=== PATIENT | female | born 1990 | race Caucasian/White ===

== ENCOUNTER 2021-11-09 10:33 | Outpatient (CLI) | payer BC, SELFPAY ==
[2021-11-09 11:15] LABS: Basophils Percent Auto 0.6 % (0.2-1.2); Eosinophils Absolute Auto 0.1 K/mm3 (0-0.3); Eosinophils Percent Auto 1.2 % (0-4.4); Hematocrit 39.5 % (37.0-47.0); Immature Granulocyte Absolute 0.01 K/mm3 (0.00-0.031); Immature Granulocyte Percent A 0.2 % (0-0.5); Lymphocytes Absolute Auto 1.94 K/mm3 (0.9-3.2); Lymphocytes Percent Auto 39.2 % (18.3-44.2); Mean Corpuscular HGB Conc 32.9 g/dl (32-36); Mean Corpuscular Hemoglobin 30.7 pg (26-34); Mean Corpuscular Volume 93.4 fl (80-100); Mean Platelet Volume 10.1 fl (7.4-10.4); Monocytes Absolute Auto 0.4 K/mm3 (0.1-0.6); Monocytes Percent Auto 7.7 % (2.6-8.5); Neutrophils Absolute Auto 2.5 K/mm3 (1.3-6.7); Neutrophils Percent Auto 51.1 % (45.5-73.1); Platelet Count Result 283 k/mm3 (150-375); Red Blood Count 4.23 M/mm3 (4.2-5.4); Red Cell Distribution Width 13.2 % (11.5-14.5)
== END 2021-11-09 10:34 | disposition home or self-care (01) ==
PROVIDERS: PCP Family Medicine; Visit Provider Obstetrics & Gynecology
DX: N92.0 Excessive and frequent menstruation with regular cycle (principal); Z01.818 Encounter for other preprocedural examination
CPT/HCPCS: 36415; 85025; 86850; 86900; 86901

== ENCOUNTER 2021-11-11 00:50 | Day surgery (SDC) | payer BC, SELFPAY ==
--- NOTE | 2021-11-08 09:36 | SUR.PREOP ---
Report to the Outpatient Waiting Room, entrance under the green pavilion located off [facility], at time 1000 on date 11/11/21. OR Time: 1200. - You and your visitor will be asked to self-screen and do not enter if you have any COVID symptoms. - Only one visitor and NO children visitors are allowed at this time. - The patient visitor is requested to leave or wait in car when not with patient due to restrictions. - A mask is required within the hospital. Patients may have clear liquids (water, carbonated beverages, clear teas, apple juice) until 3 hours prior to surgery with a maximum of 20 ounces. - NO CLEAR LIQUIDS AFTER 9AM - No food from midnight until time of surgery - Infants may have breast milk until 4 hours before surgery, formula 6 hours prior to surgery. - Children will be allowed to drink immediately following surgery. If applicable, please bring a bottle or sippy cup to assist with drinking. Juice, water, soda, and popsicles are readily available. For infants on formula, please bring formula the day of surgery. Pacifiers are allowed. Take the following medications with a SIP of water the morning of surgery: FLUOXETINE, BRING ALBUTEROL INHALER WITH YOU THE DAY OF SURGERY Please no make-up, nail albanian, hairspray, perfume, deodorant, or body powder the day of surgery. No jewelry (including any body piercings) or valuables the day of surgery, leave them at home. Please take a shower or bath the night before, or the morning of, surgery with an antibacterial soap. Wear comfortable, loose fitting clothing. Children are encouraged to wear pajamas. - Jewelry must be removed prior to entering the operating room. Rings and piercings that are not removed may be cut off. - The hospital will not accept responsibility for valuables. - Please leave all valuables, including medications, at home the day of surgery. If you are going home after surgery, a licensed flatbed driver must drive you home. - NO public transportation without another adult. - We recommend that an adult stay with you for 24 hours following discharge. - We also recommend that you do not drive, make important decision, drink alcoholic beverages, or take any drugs that were not prescribed by your health care provider for at least 24 hours after your discharge time. For Pediatric surgeries, we recommend two adults accompany the child home (only one inside the building at this time). Follow any additional instructions given to you from your surgeon. If you or anyone in your household have experienced Covid symptoms in the past week, please notify your surgeon or the nurse liaison at the phone number below for possible testing. Telephone instructions given to ANGEL LUIS TIAN and asked if any additional questions and then verbalized understanding. Patient advised to call surgeon office or pre surgery nurse liaison [phone] if any additional questions.
[2021-11-08 09:51] VITALS: BMI 28.4
--- NOTE | 2021-11-09 07:10 | P.HP_ITS ---
H&P: HPI History of Present Illness Date/Time: 11/09/21 07:10 Chief Complaint: Bleeding/pain/ dyspareunia Narrative: this is the 31-year-old female admitted for robotic total vaginal hysterectomy and bilateral salpingectomy secondary to heavy bleeding pain and dyspareunia. She has a long history of endometriosis. She has tried pills patches IUDs. She has had tubal lesions which have been unhelpful with bleeding and continues to have dyspareunia her primary physician sent her for consideration of hysterectomy and bilateral salpingectomy which she desires. Risks and benefits reviewed including but not exclusive of , aspiration 1, bleeding, transfusion, perforation under to bowel, bladder, ureters, or other internal organs with need for open laparotomy. She received the [employer]G handout entitled hysterectomy as well as the [facility] handout. She had all questions answered and asked to proceed PMF Social History Social History Smoking status: Never smoker Alcohol intake: current Substance use type: does not use Spiritual care concerns: No Meds Home Medications and Allergies Home Medications Medication Instructions Recorded Confirmed Type albuterol 90 mcg/actuation aerosol 90 mcg inhalation PRN PRN 11/08/21 11/08/21 History inhaler Shortness Of Breath fexofenadine 180 mg tablet 180 mg PO DAILY 11/08/21 11/08/21 History fluoxetine 20 mg capsule 60 mg PO DAILY 11/08/21 11/08/21 History lamotrigine 25 mg tablet 75 mg PO DAILY 11/08/21 11/08/21 History norethindrone acetate 1 mg-ethinyl 1 tablet PO DAILY 11/08/21 11/08/21 History estradiol 20 mcg tablet (Microgestin) Allergies Allergy/AdvReac Type Severity Reaction Status Date / Time kiwi Allergy Severe Anaphylaxis Verified 11/08/21 09:46 prednisone Allergy Severe Other Verified 11/08/21 09:46 amitriptyline Allergy Intermediate Other Verified 11/08/21 09:46 Exam Const: General: cooperative and healthy appearing Nutritional Appearance: average body habitus Orientation/consciousness: oriented to person, oriented to place and oriented to time HENMT: Head: normal to inspection Chest: Chest palpation & inspection: normal inspection of the chest Resp: Effort & Inspection: normal respiratory effort Cardio: Rate: regular rate Rhythm: regular rhythm GI: Inspection: normal to inspection : External Female Exam: normal external appearance Speculum Exam - Vagina: normal appearance of the vagina Speculum Exam - Cervix: normal ap pearance of the cervix Bimanual exam- vagina & uterus: enlarged Bimanual Exam- Adnexa, other: normal adnexae Assessment and Plan Assessment and plan (1) Dyspareunia: Status: Acute (2) Dysmenorrhea: Code(s): N94.6 - Dysmenorrhea, unspecified Status: Acute (3) Pelvic pain: Code(s): R10.2 - Pelvic and perineal pain Status: Acute Plan robotic total vaginal hysterectomy bilateral salpingectomy
[2021-11-11] VITALS (10 sets, daily range): BP systolic 96–131; BP diastolic 57–76; PULSE 66–87; RESP 12–20; TEMP 36.1–37.4; O2SAT 97–100
--- NOTE | 2021-11-11 06:56 | WPDHPUPDATE1 ---
History and Physical Update Update Date/Time: 11/11/21 06:56 History and Physical has been reviewed, including an updated exam of the patient. There are NO changes in the patient's condition. Risks, benefits, and alternatives have been discussed and questions answered. Patient agrees to proceed with procedure.
--- NOTE | 2021-11-11 08:53 | WPDANESEPPF ---
Anes - Initial Pre Proc Eval Procedure: Operation Date: 11/11/21 12:00 Proposed Procedures p Robotic Assisted Total Vaginal Hysterectomy with Bilateral Salpingectomy - Luke Silverman MD Date/Time: 11/11/21 08:53 Surgeon: Luke Silverman MD Pre Op Diagnosis: Heavy bleeding, Pelvic Pain, Dyspareunia, Patient Data Age: 31 Gender: F Height: 1.57 m Weight: 70.5 kg Allergies Allergy/AdvReac Type Severity Reaction Status Date / Time kiwi Allergy Severe Anaphylaxis Verified 11/08/21 09:46 prednisone Allergy Severe Other Verified 11/08/21 09:46 amitriptyline Allergy Intermediate Other Verified 11/08/21 09:46 Home Medications Medication Instructions Recorded Confirmed Type albuterol 90 mcg/actuation aerosol 90 mcg inhalation PRN PRN 11/08/21 11/08/21 History inhaler Shortness Of Breath fexofenadine 180 mg tablet 180 mg PO DAILY 11/08/21 11/08/21 History fluoxetine 20 mg capsule 60 mg PO DAILY 11/08/21 11/08/21 History lamotrigine 25 mg tablet 75 mg PO DAILY 11/08/21 11/08/21 History norethindrone acetate 1 mg-ethinyl 1 tablet PO DAILY 11/08/21 11/08/21 History estradiol 20 mcg tablet (Microgestin) hydrocodone 5 mg-acetaminophen 325 1 tablet PO Q4H PRN pain #30 tabs 11/11/21 Rx mg tablet Patient hx anesthesia problems: none Family hx anesthesia problems: none Results Review: All pre-operative results and documents have been reviewed as part of the pre-operative evaluation. [facility] Past Medical History Medical History (Updated 11/11/21 @ 08:54 by Case Dasilva DO) Anxiety Asthma Bipolar disorder Depression Endometriosis Surgical History Surgical History (Updated 11/11/21 @ 08:54 by Case Dasilva DO) History of Social History Social History (Updated 11/11/21 @ 11:06 by Case Dasilva DO) Smoking status: Never smoker Alcohol intake: current Alcohol use details: 4-6 shots/day Substance use: current Substance use type: marijuana Other substance usage details: edibles a few times a week Living arrangements: with family Spiritual care concerns: No Anes - Eval Final PreProcedure Day of Procedure 11/11/21 08:53 Patient weight: overweight Heart: regular rate and rhythm Lungs: clear to auscultation Airway: Mallampati scale class II Neurological: alert and oriented Last oral intake: >/= 8 hours ASA classification: III Emergent: no Anesthetic plan: proceed Anesthesia type and monitoring: general ETT and standard monitoring Results Review: All pre-operative results and documents have been reviewed as part of the pre-operative evaluation. Informed Consent: The patient's anesthetic plan and its attendant risks and benefits were discussed with the patient/family/POA. Questions were solicited and answers provided to the satisfaction of the patient/family/POA.
[2021-11-11] MEDS: LACTATED RINGERS 1,000 ML 30 ML IV CONT ×2 (10:30→13:09)
[2021-11-11] MEDS: ACETAMINOPHEN 500 MG TABLET 1000 MG PO (10:35)
[2021-11-11] MEDS: KETOROLAC 15 MG/ML VIAL (*BKC) IV PUSH (10:37)
[2021-11-11] MEDS: MIDAZOLAM HCL (*CRX) 2 MG/2 ML VIAL IV PUSH (11:25)
[2021-11-11] MEDS: ceFAZolin 2 GM/D5W 50 ML 2 GM/50 ML BAG IVPB (11:54)
--- NOTE | 2021-11-11 12:57 | W.PM.PROC2 ---
Procedure Note - Detailed Date of Procedure 11/11/21 Pre-op Diagnosis Heavy bleeding, Pelvic Pain, Dyspareunia, Post-op Diagnosis Same Procedure Performed Robotic total vaginal hysterectomy and bilateral salpingectomies Surgeon Luke Silverman MD Anesthesia General Indications this 31-year-old female with pelvic pain dyspareunia enlarged uterus refractory to medical therapy Findings enlarged uterus. Normal-appearing tubes and ovaries bilaterally. Description of Procedure Patient was prepped and draped in the normal sterile fashion placed in the dorsal lithotomy position. Under excellent general trach anesthesia weighted speculum placed posterior fornix vagina. Anterior lip of the cervix grasped with single-tooth tenaculum and the uterus sounded to 10cm. Serial dilatation with fragmented dilators performed followed by passage of 10. CEASAR and the 2.5 cold cup. Next the 16 Persian catheter was placed in the bladder and the weighted speculum and single-tooth were removed. Gloves were changed. A supraumbilical incision made the Veress needle passed in the abdomen. Abdomen filled with CO2 gas [id number]. The 8mm trocar advanced in the abdomen the downside visualized with no injury seen. Patient placed in Trendelenburg and right left lateral quadrant incisions made. 8Mm trocars were advanced under direct visualization assuring no injury. Right upper quadrant incision made the 8mm trocar advanced under direct visualization assuring no injury. The robot was docked. Attention was turned to the console. The left round ligament was grasped, burned, cut. Anterior bladder flap was formed by sharply dissecting the peritoneum and reflecting the bladder laterally away from the cervix and uterus to the opposite round ligament which was clamped, burned, cut. Next the left fallopian tube was sharply dissected away from the ovarian complex and left attached to the uterine origin a flowers. In like fashion the right fallopian tube was dissected away and left at its origin away from the ovary. Next the utero-ovarian ligament on the left was skeletonized to conserve the left ovary. This was clamped, burned, cut and brought to level of previously cut round ligament. In like fashion conserving the right ovary, the utero-ovarian ligament was clamped, burned, cut brought to level of previously cut round ligament. Next the cardinal broad ligaments on the left were serially skeletonized hugging the cervix and uterus as working its way down clamping burning cutting until the uterine vessels could be seen on the left. These were individually clamped, burned, cut there were marked and tortuous. In like fashion the cardinal and broad ligaments on the right were serially skeletonized. These were clamped, burned, cut and brought down the lateral edge of the cervix uterus until a vessels could be seen on the right. These were individually clamped, burned, cut. Blanching the uterus was noted and a colpotomy incision was made. Cervix uterus and tubes removed through the vagina. The vagina was then closed with continuous running 0V lock from lateral edge to lateral edge back to the midline. Blood loss estimated 25cc and irrigation was undertaken until clear. All pedicles appeared dry and the robot was undocked. Gas removed from the abdomen and the trocars removed. The incisions closed with 4 Monocryl and glue. The instruments removed from the vagina and the patient was awakened. All sponge, needle, instrument counts were correct. There were no immediate complications noted Estimated Blood Loss 25 Drains No Packing No Pathology Yes Complications No immediate complications Condition Stable Disposition PACU
[2021-11-11] MEDS: fentaNYL CITRATE INJ (*CRX) 100 MCG/2 ML VIAL 25 MCG IV PUSH ×8 (13:23→13:45)
[2021-11-11] MEDS: HYDROmorphone HCL INJ (*CRX) 1 MG/ML SYR 0.5 MG IV PUSH ×2 (13:55→14:00)
--- NOTE | 2021-11-11 14:17 | ADMGEN ---
This patient, Amira Bruce, was transferred to post room #289 per bed from PACU.
[2021-11-11] MEDS: DEXTROSE 5%/LACTATED RINGERS 1,000 ML 125 ML IV CONT (14:21)
[2021-11-11] MEDS: KETOROLAC 30 MG/ML VIAL (*BKC) IV PUSH (16:17)
[2021-11-11] MEDS: DOCUSATE SODIUM 100 MG CAPSULE PO (17:15)
[2021-11-11] MEDS: HYDROcodone/acetaminophen (*CRX) 5-325 MG TABLET 1 TAB PO ×2 (19:26→22:11)
[2021-11-11] MEDS: IBUPROFEN 600 MG TABLET PO (22:13)
[2021-11-11] MEDS: diphenhydrAMINE HCl CAP 25 MG CAPSULE 50 MG (23:19)
[2021-11-12 05:10] VITALS: BP 113/58; PULSE 70; RESP 16; TEMP 36.7
--- NOTE | 2021-11-12 05:10 | PC.NURSE ---
This patient was given a Gilsum 5mg and a Motrin 600mg at 0510 on 11/12/2021 for incisional pain of 5. [facility] was down at this time and the MAR was not able to be accessed.
[2021-11-12 05:52] LABS: Basophils Percent Auto 0.2 % (0.2-1.2); Hematocrit 34.1 % (37.0-47.0); Hemoglobin 11.3 g/dL (12.0-15.0); Immature Granulocyte Absolute 0.04 K/mm3 (0.00-0.031); Immature Granulocyte Percent A 0.5 % (0-0.5); Lymphocytes Absolute Auto 1.41 K/mm3 (0.9-3.2); Lymphocytes Percent Auto 16.3 % (18.3-44.2); Mean Corpuscular HGB Conc 33.1 g/dl (32-36); Mean Corpuscular Volume 93.4 fl (80-100); Mean Platelet Volume 10.5 fl (7.4-10.4); Monocytes Absolute Auto 0.5 K/mm3 (0.1-0.6); Monocytes Percent Auto 5.9 % (2.6-8.5); Neutrophils Absolute Auto 6.7 K/mm3 (1.3-6.7); Neutrophils Percent Auto 77.1 % (45.5-73.1); Platelet Count Result 189 k/mm3 (150-375); Red Blood Count 3.65 M/mm3 (4.2-5.4); White Blood Count 8.6 K/mm3 (4.5-10.0)
--- NOTE | 2021-11-12 06:37 | PM.DS ---
DS: Admitting Diagnosis Discharge Date 11/12/2021 Admitting Diagnosis pelvic pain. Enlarged uterus DS: Discharge Diagnosis Discharge Diagnosis (1) Pelvic pain: Code(s): R10.2 - Pelvic and perineal pain Status: Acute (2) Dysmenorrhea: Code(s): N94.6 - Dysmenorrhea, unspecified Status: Acute (3) Dyspareunia: Status: Acute DS: Summary Hospital Course Reason for hospitalization: robotic hysterectomy and bilateral salpingectomy Hospital Course: patient was admitted for robotic hysterectomy and bilateral salpingectomy. Her hospital course were unremarkable. She remained afebrile. She was up, voiding without difficulty, ambulating, generally without complaints. Routine discharge instructions were given Time Spent with Patient Time attestation: Total time spent providing and/or coordinating discharge services: DS: Data Data Completed and Pending Pending studies at discharge: Pending at discharge 11/11/21 13:01 Surgical [PTH] Routine Labs on day of discharge: Labs from last 24 hours 11/12/21 05:10 WBC 8.6 RBC 3.65 L Hgb 11.3 L Hct 34.1 L MCV 93.4 MCH 31.0 MCHC 33.1 RDW 13.0 Plt Count 189 MPV 10.5 H Immature Gran % (Auto) 0.5 Neut % (Auto) 77.1 H Lymph % (Auto) 16.3 L [place] % (Auto) 5.9 Eos % (Auto) 0.0 Baso % (Auto) 0.2 Lymph # (Auto) 1.41 [place] # (Auto) 0.5 Eos # (Auto) 0.0 Baso # (Auto) 0.0 Abs Immat Gran (auto) 0.04 H Absolute Neuts (auto) 6.7 Absolute Nucleated RBC 0.0 Nucleated RBC % 0.0 Discharge Plan Discharge Patient Disposition: Home, Self-Care Stand Alone Forms: General Discharge Instructions Follow-up/Referrals: Luke Griffiths MD [Physician] - Discharge Medications: New hydrocodone-acetaminophen 5-325 mg tablet 1 tablet PO Q4H PRN (Reason: pain) Qty: 30 0RF Continued fexofenadine 180 mg Tablet 180 mg PO DAILY lamotrigine 25 mg tablet 75 mg PO DAILY norethindrone ac-eth estradiol [Microgestin 04/15 ()] 1-20 mg-mcg tablet 1 tablet PO DAILY fluoxetine 20 mg capsule 60 mg PO DAILY albuterol 90 mcg/actuation Aerosol 90 mcg INHALATION PRN PRN (Reason: Shortness Of Breath) Label Comments: 2 PUFFS NEEDED
--- NOTE | 2021-11-12 06:39 | PM.GYNPNOP ---
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 Assessment and plan (1) Pelvic pain: Code(s): R10.2 - Pelvic and perineal pain Status: Acute Postoperative Procedures: Procedures Operation Date: 11/11/21 12:00 Actual Procedure Side Surgeon p Robotic Assisted Total Vaginal Hysterectomy with Bilateral Salpingectomy Bilateral Luke Silverman MD Postoperative status: doing well Postoperative plan: routine post-op care, advance diet and discharge Time Spent With Patient Time: Total time spent is greater than 50% in coordination of care (as documented) at patient's floor/unit and/or counseling patient: Time with patient: less than 15 minutes WOOD S[employer]AP [employer]ER- PN:Subj Post-Op Subjective Date/time seen: 11/12/21 06:39 WOOD SCRAP [employer]ER - PN: Obj Data Vital Signs Vital Signs: Vital Signs - 24 hr 11/11/21 11:00 11/11/21 13:09 11/11/21 13:15 Temperature 98.1 F 97 F L Pulse Rate 87 69 69 Respiratory Rate 16 17 14 Blood Pressure 121/76 118/71 108/61 Pulse Oximetry 100 100 100 Oxygen Delivery Room Air Simple Face Mask Simple Face Mask Oxygen Flow Rate 10 10 11/11/21 13:30 11/11/21 13:45 11/11/21 14:00 Temperature Pulse Rate 66 67 77 Respiratory Rate 12 12 16 Blood Pressure 109/74 96/61 L 100/57 L Pulse Oximetry 100 100 98 Oxygen Delivery Simple Face Mask Room Air Room Air Oxygen Flow Rate 10 11/11/21 14:11 11/11/21 14:20 11/11/21 14:30 Temperature 98.4 F Pulse Rate 76 84 Respiratory Rate 12 16 Blood Pressure 97/58 L 99/57 L Pulse Oximetry 97 100 Oxygen Delivery Room Air Room Air Oxygen Flow Rate 11/11/21 18:30 11/11/21 22:10 11/12/21 05:10 Temperature 98.6 F 99.4 F 98.1 F Pulse Rate 74 83 70 Respiratory Rate 20 18 16 Blood Pressure 119/72 131/64 113/58 L Pulse Oximetry Oxygen Delivery Oxygen Flow Rate Intake/Output Intake/Output: Intake & Output 11/09/21 11/10/21 11/11/21 11/12/21 23:59 23:59 23:59 23:59 Intake Total 2500 Output Total 1700 Balance 800 Meds/Results Medications: Active Medications Generic Name Dose Route Start Last Admin Trade Name Freq PRN Reason Stop Dose Admin Hydrocodone Bitart/Acetaminophen 1 tab 11/11/21 14:12 11/11/21 22:11 Hydrocodone/Acetaminophen (*Crx) 5-325 Mg Tablet PO 1 tab Q3H PRN Administration Pain Rated 5 or Less Hydrocodone Bitart/Acetaminophen 1 tab 11/11/21 14:12 Hydrocodone/Acetaminophen (*Crx) 10-325 Mg Tablet PO Q3H PRN Pain Rated 6 or Greater Docusate Sodium 100 mg 11/11/21 17:00 11/11/21 17:15 Docusate Sodium 100 Mg Capsule PO 100 mg BID MELVA Administration Enoxaparin Sodium 40 mg 11/12/21 09:00 Enoxaparin 40 Mg/0.4 Ml Syringe SUB-Q DAILY MELVA Ibuprofen 600 mg 11/11/21 14:12 11/11/21 22:13 Ibuprofen 600 Mg Tablet PO 600 mg Q6H PRN Administration Cramping Ketorolac Tromethamine 30 mg 11/11/21 14:12 11/11/21 16:17 Ketorolac 30 Mg/Ml Vial (*Bkc) IV PUSH 11/16/21 14:11 30 mg Q6H PRN Administration Pain Rated 4-6 Naloxone HCl 0.1 mg 11/11/21 14:12 Naloxone Hcl 0.4 Mg/Ml Vial IV PUSH Q2M PRN Respiratory rate less than 10 Ondansetron HCl 4 mg 11/11/21 14:12 Ondansetron Inj 4 Mg/2 Ml Vial IV PUSH Q6H PRN Nausea And Vomiting Simethicone 80 mg 11/11/21 14:12 Simethicone 80 Mg Tab.Chew PO Q2H PRN Gas Labs CBC & Chem 7: 11/12/21 05:10 Labs: Laboratory Results - last 24 hr 11/12/21 05:10 WBC 8.6 RBC 3.65 L Hgb 11.3 L Hct 34.1 L MCV 93.4 MCH 31.0 MCHC 33.1 RDW 13.0 Plt Count 189 MPV 10.5 H Immature Gran % (Auto) 0.5 Neut % (Auto) 77.1 H Lymph % (Auto) 16.3 L [place] % (Auto) 5.9 Eos % (Auto) 0.0 Baso % (Auto) 0.2 Lymph # (Auto) 1.41 [place] # (Auto) 0.5 Eos # (Auto) 0.0 Baso # (Auto) 0.0 Abs Immat Gran (auto) 0.04 H Absolute Neuts (auto) 6.7 Absolute Nucleated RBC 0.0 Nucleated RBC % 0.0
[2021-11-12 07:25] VITALS: BP 116/69; PULSE 81; RESP 18; TEMP 36.9; O2SAT 100
--- NOTE | 2021-11-12 07:37 | WPDANESPN ---
Anes - Prog Note Post-Op Date/Time: 11/12/21 07:37 Vital Signs: Last Vital Signs Temp 36.7 C 11/12/21 05:10 Pulse 70 11/12/21 05:10 Resp 16 11/12/21 05:10 BP 113/58 L 11/12/21 05:10 Pulse Ox 100 11/11/21 14:20 O2 Del Method Room Air 11/11/21 14:30 O2 Flow Rate 10 11/11/21 13:30 Pain Score (VAS): 0 I/O: Intake & Output 11/11/21 11/11/21 11/12/21 15:59 23:59 07:59 Intake Total 1050 1450 Output Total 1700 Balance 1050 -250 Laboratory Tests 11/12/21 05:10 11/12/21 05:10 WBC 8.6 RBC 3.65 L Hgb 11.3 L Hct 34.1 L MCV 93.4 MCH 31.0 MCHC 33.1 RDW 13.0 Plt Count 189 MPV 10.5 H Immature Gran % (Auto) 0.5 Neut % (Auto) 77.1 H Lymph % (Auto) 16.3 L [place] % (Auto) 5.9 Eos % (Auto) 0.0 Baso % (Auto) 0.2 Lymph # (Auto) 1.41 [place] # (Auto) 0.5 Eos # (Auto) 0.0 Baso # (Auto) 0.0 Abs Immat Gran (auto) 0.04 H Absolute Neuts (auto) 6.7 Absolute Nucleated RBC 0.0 Nucleated RBC % 0.0 Patient Feedback: Patient satisfied with anesthetic care.
[2021-11-12] MEDS: ENOXAPARIN 40 MG/0.4 ML SYRINGE SUB-Q (08:21)
[2021-11-12] MEDS: HYDROcodone/acetaminophen (*CRX) 5-325 MG TABLET 1 TAB PO ×2 (08:21→11:27)
[2021-11-12] MEDS: DOCUSATE SODIUM 100 MG CAPSULE PO (08:21)
[2021-11-12] MEDS: IBUPROFEN 600 MG TABLET PO (11:27)
== END 2021-11-12 11:33 | disposition home or self-care (01) ==
LOC: ANHSURGERY 09:32 → ANHOB2 14:46
PROVIDERS: PCP Family Medicine; Visit Provider Obstetrics & Gynecology
PROC: (CPT 58552; principal; 2021-11-11 12:00)
DX: N93.9 Abnormal uterine and vaginal bleeding, unspecified (principal); N83.8 Other noninflammatory disorders of ovary, fallopian tube and broad ligament; N94.10 Unspecified dyspareunia; R10.2 Pelvic and perineal pain; Z79.82 Long term (current) use of aspirin
CPT/HCPCS: 58552; S2900; 36415; 85025; 88307; 99199; A9270; J0690; J1100; J1170; J1650; J1885; J2250; J2405; J2704; J3010; J7030; J7120; J7121